=== PATIENT | male | born 1955 | race Caucasian/White ===

== ENCOUNTER 2016-10-22 15:42 | Inpatient (IN) | payer OTHER ==
[~2016-10-22] VITALS: Ht 188 cm; Wt 102.1 kg
--- NOTE | 2016-10-22 15:47 | NUR ---
PT SENT IN BY DR. LEIVA FOR EXTENSIVE DVT TO RIGHT LOWER EXT. THAT GOES FROM GROIN ALL THE WAY DOWN. PT HAD US AT [facility].
--- NOTE | 2016-10-22 15:52 | ED GENERAL ADULT ---
See Addendum History of Present Illness General Chief Complaint: General Adult Stated Complaint: PT NEEDS A RX FILL SAY MIKO CALL AHEAD Source: patient Exam Limitations: no limitations Vital Signs & Intake/Output Vital Signs & Intake/Output Vital Signs Date Time Temp Pulse Resp B/P B/P Pulse O2 O2 Flow FiO2 Mean Ox Delivery Rate 10/23 2131 97.3 75 18 186/78 95 Room Air 10/22 2012 97.3 76 18 176/88 97 Room Air 10/22 1803 72 18 189/88 96 Room Air 10/22 1626 98 Room Air 10/22 1548 96.8 94 16 195/95 98 Room Air Allergies Coded Allergies: No Known Allergies (10/22/16) Reconcile Medications Allopurinol 300 MG TABLET 1 TAB PO DAILY GOUT (Reported) Metoprolol Succinate 25 MG TAB 1 TAB PO DAILY HTN (Reported) Triage Note: PT SENT IN BY DR. MCWILLIAMS FOR EXTENSIVE DVT TO RIGHT LOWER EXT. THAT GOES FROM GROIN ALL THE WAY DOWN. PT HAD US AT [facility]. Triage Nurses Notes Reviewed? yes HPI: 61 yo M PMH HTN, Gout presenting with RLE swelling. Patient has had right calf swelling for the past 1-2 months, initially treated to a pulled muscle, but persistent, received right lower extremity DVT ultrasound today, "showed extensive thrombus in the right lower extremity extending from the popliteal vein through the right external iliac vein". Endorses RLE swelling, minimal pain. Denies fevers, chills, chest pain, SOB, palpitaitons, N/V, dizziness, NEGRON, or focal neurologic Sx. (MAICO FINE,SANTIAGO) Past History Travel History Traveled to [place] past 21 day No Medical History Any Pertinent Medical History? none Cardiovascular: hypertension Endocrine: GOUT Surgical History Surgical History: none Psychosocial History Tobacco Use: Never used ETOH Use: denies use Illicit Drug Use: denies illicit drug use Family History Hx Contributory? Yes (MAICO FINE,SANTIAGO) Review of Systems Review of Systems Constitutional: Reports: no symptoms. EENTM: Reports: no symptoms. Respiratory: Reports: no symptoms. Cardiovascular: Reports: edema. GI: Reports: no symptoms. Genitourinary: Reports: no symptoms. Musculoskeletal: Reports: muscle pain. Skin: Reports: no symptoms. Neurological/Psychological: Reports: no symptoms. Hematologic/Endocrine: Reports: no symptoms. Immunologic/Allergic: Reports: no symptoms. All Other Systems: Reviewed and Negative (MAICO FINE,SANTIAGO) Physical Exam Physical Exam General Appearance: well developed/nourished, no apparent distress, alert, awake Head: atraumatic Eyes: Bilateral: PERRL, EOMI. Neck: normal inspection, full range of motion Respiratory: normal breath sounds, lungs clear, respiratory distress Cardiovascular: regular rate/rhythm, normal peripheral pulses Peripheral Pulses: 2+ tibialis posterior (R), 2+ tibialis posterior (L), 2+ dorsalis pedis (R), 2+ dorsalis pedis (L) Gastrointestinal: normal bowel sounds, soft, non-tender Comments: Extremities: Right calf swelling, non-erythematous, non-TTP, LLE without swelling or TTP, 2+ DP/PT pulses bilaterall, no distal neurovascular deficits Core Measures ACS in differential dx? No CVA/TIA Diagnosis: No Severe Sepsis Present: No Septic Shock Present: No (MAICO FINE,SANTIAGO) Progress Differential Diagnoses I considered the following diagnoses in my evaluation of the patient: [ Cellulitis, DVT, low concern for PE, vascular compromise of RLE] Plan of Care: Orders Procedure Date/time Status Nothing by Mouth 10/23 B Active ECHOCARDIOGRAM 10/23 2214 Active CBC WITHOUT DIFFERENTIAL 10/23 0600 Active BASIC ELECTROLYTES PLUS BUN&CR 10/23 0600 Active EKG 10/23 0600 Active PARTIAL THROMBOPLASTIN TIME 10/23 0045 Active Regular Diet 10/22 D Complete Pathway - chart 10/222 Active Code Status 10/22 2132 Active Admit to inpatient 10/225 Active Patient Data 10/22 2014 Active ED Holding Orders 10/22 1930 Active Vital Signs 10/22 1930 Active Code Status 10/22 1930 Complete Patient Data 10/22 1848 Active Weight 10/22 1812 Active Intake & Output 10/22 1614 Active PARTIAL THROMBOPLASTIN TIME 10/22 1553 Complete PROTHROMBIN TIME 10/22 1553 Complete CBC WITHOUT DIFFERENTIAL 10/22 1553 Complete BASIC METABOLIC PANEL 10/22 1553 Complete EKG 10/22 1553 Active TRC EVALUATION (GEN) 10/22 UNK Active House Staff 10/22 UNK Active Vital Signs 10/22 UNK Active Current Medications Sig/Froilan Start time Last Medication Dose Stop Time Status Admin Acetaminophen 650 MG Q6P PRN 10/220 AC (Tylenol) Acetaminophen/ 1 TAB Q6P PRN 10/22 2130 AC Hydrocodone Bitart (Vicodin) Oxycodone/ 1 TAB Q6P PRN 10/22 2130 AC Acetaminophen (Percocet) Heparin Sodium 25,000 UNIT Q24H 10/22 1730 AC 10/22 (Porcine) 1845 (Heparin) Sodium Chloride 500 ML Heparin Sodium 5,000 UNIT .Q1M 10/22 173 AC 10/22 (Porcine) 1845 N/A 1 UNIT (No Carrier) Laboratory Tests 10/22/16 1626: Anion Gap 13, Estimated GFR > 60, BUN/Creatinine Ratio 18.9, Glucose 99, Calcium 9.6, PT 14.2 H, INR 1.36 H, APTT 34, CBC w Diff NO MAN DIFF REQ, RBC 5.41, MCV 85.5, MCH 28.3, RDW 16.4 H, MPV 7.6, Gran % 59.6, Lymphocytes % 27.2, Monocytes % 8.1, Eosinophils % 4.6, Basophils % 0.5, Absolute Granulocytes 5.0, Absolute Lymphocytes 2.3, Absolute Monocytes 0.7 H, Absolute Eosinophils 0.4, Absolute Basophils 0, PUBS MCHC 33.1 Physician MDM: 61 yo M PMH HTN presenting with known RLE DVT. Hypertensive, HR 90, otherwise VSS, remainder of exam as above. DDx: DVT, cellulitis, low concern for PE. ECG sinus rhythm, non-ischemic. CBC, BMP unermarkable. Called to discuss care with patient's PMD Dr. Mcwilliams, given patient well-appearing with normal vital signs and no symptoms concerning for PE willing to consider outpatient management on NOAC, requested vascular surgery consult to discuss if the patient would best be managed in the inpatient or outpatient setting. Vascular surgery (Dr. Parsons) consulted, reccomended inpatient admission with heparin gtt, surgery PA evaluation, will evaluate tonight or tomorrow for possible endovascular intervention/lysis. Heparin gtt ordered. Admit to hospitalist. The plan of care was discussed with the patient who expressed agreement and understanding (MAICO FINE,SANTIAGO) Initial ED EKG: normal sinus rhythm (MAICO FINE,SANTIAGO) Departure Departure Disposition: STILL A PATIENT Condition: Stable Clinical Impression Primary Impression: DVT (deep venous thrombosis) Referrals: ABDIRAHMAN MCWILLIAMS DO (PCP/Family) Departure Forms: Customer Survey General Discharge Information (MAICO FINE,SANTIAGO) Admission Note Spoke With: MAIK VAZ MD Documentation of Exam: Documentation of any treatments & extenuating circumstances including Concerns Regarding Discharge (functional status, medication knowledge or non-compliance, living conditions, etc.) that warrant an admission rather than observation: [ Patient has sensitive TVT. Vascular is going to attempt TPA at this site. Patient will most likely be in the hospital for greater than 24-48 hours.] Resident Co-Sign Statement Statement: ED Attending supervision documentation- [X] I saw and evaluated the patient. I have also reviewed all the pertinent lab results and diagnostic results. I agree with the findings and the plan of care as documented in the Resident's documentation. [X] I have reviewed the ED Record and agree with the Resident's documentation. [] Additions or exceptions (if any) to the Resident's note and plan are summarized below: [] (EVENS FINE,ROLANDO Whatley) Resident Co-Sign Statement Statement: ED Attending supervision documentation- [] I saw and evaluated the patient. I have also reviewed all the pertinent lab results and diagnostic results. I agree with the findings and the plan of care as documented in the Resident's documentation. [X] I have reviewed the ED Record and agree with the Resident's documentation. [] Additions or exceptions (if any) to the Resident's note and plan are summarized below: [] (ARGENTINA FINE,ALICIA) Critical Care Note Critical Care Note Critical Care Time: non-applicable (SANTIAGO NINA MD)
--- NOTE | 2016-10-22 16:11 | NUR ---
PT CHANGING INTO GOWN. EKG IN PROGRESS
--- NOTE | 2016-10-22 16:31 | NUR ---
PT REPORTS THAT PAIN AND SWELLING TO RLE OCCURRED APPROX 2 MONTHS AGO AFTER EXERCISE AND THE SWELLING AND SORENESS IN R CALF AND ANKLE NEVER GOT BETTER. STATES ONLY SLIGHT DISCOMFORT TO UPPER LEG. ALSO REPORTS MED NON-COMPLIANCE WITH ALLOPURINOL
[2016-10-22 16:36] LABS: ABSOLUTE BASOPHIL COUNT 0 /CUMM (0.0-0.2); ABSOLUTE EOSINOPHIL COUNT 0.4 /CUMM (0.0-0.7); ABSOLUTE LYMPH COUNT 2.3 /CUMM (1.2-3.4); ABSOLUTE MONOCYTE COUNT 0.7 /CUMM (0.10-0.60); BASOPHIL % 0.5 % (0.0-2.0); EOSINOPHIL % 4.6 % (0-5); GRANULOCYTE % 59.6 % (42.2-75.2); HEMATOCRIT 46.2 % (42-52); MEAN CORPUSCULAR HGB 28.3 PG (27.0-31.0); MEAN CORPUSCULAR HGB CONC 33.1 G/DL (33.0-37.0); MEAN CORPUSCULAR VOLUME 85.5 FL (80.0-94.0); MEAN PLATELET VOLUME 7.6 FL (7.4-10.4); PLATELET COUNT 228 /CUMM (130-400); RBC DISTRIBUTION WIDTH 16.4 % (11.5-14.5); RED BLOOD CELL CT 5.41 /CUMM (4.70-6.10); WHITE BLOOD CELL COUNT 8.4 /CUMM (4.8-10.8)
[2016-10-22] MEDS ORDERED: METOPROLOL SUCC25 M1 PO (16:36)
[2016-10-22] MEDS ORDERED: ALLOPURINOL300 M1 PO (16:36)
[2016-10-22 16:52] LABS: PT 14.2 SEC (9.4-12.5); PTT 34 SEC (25-37)
--- NOTE | 2016-10-22 18:11 | NUR ---
IV ESTABLISHED AND PT EXPLAINED PLAN FOR ADMISSION WITH HEPARIN THERAPY
--- NOTE | 2016-10-22 18:52 | NUR ---
PT MEDICATED WITH HEPARIN BOLUS AND GTT INITIATED AT 26ML/HR PER VTE PROTOCOL AND MAX OUT DOSE OF 1300UNITS BASED ON PATIENT'S CONFIRMED WEIGHT. REPEAT PTT ORDERED FOR 1245AM. CALL HEARN IN REACH, LIGHTS DIMMED FOR COMFORT
--- NOTE | 2016-10-22 19:27 | NUR ---
ASSUMED CARE OF PT FROM BOOKER HASTINGS. PT RESTING COMFORTABLY ON STRETCHER, AWARE OF BEDREST STATUS WITH HEPARIN GTT INFUSING. PT TOLERATING WELL. DENIES ANY SOB. WILL CTM.
--- NOTE | 2016-10-22 20:13 | NUR ---
PT RESTING COMFORTABLY, DENIES ANY COMPLAINTS AT THIS TIME. AWAITING ADMISSION
--- NOTE | 2016-10-22 20:18 | NUR ---
PT'S RM ASSIGNMENT 220 BED 1
--- NOTE | 2016-10-22 20:20 | NUR ---
AT BEDSIDE TO EVAL PT
--- NOTE | 2016-10-22 20:50 | NUR ---
HOUSE STAFF AT BEDSIDE
--- NOTE | 2016-10-22 21:14 | NUR ---
PER HOUSE STAFF AND MOD PT WILL NOW BE FULL TELE ADMIT. AWAITING NEW BED ASSIGNMENT. NSR (75) ON MONITOR. DENIES SOB. DENIES CP.
--- NOTE | 2016-10-22 21:23 | NUR ---
PT TO TELE RM ASSIGNMENT 189 BED 2
--- NOTE | 2016-10-22 22:06 | NUR ---
REPORT GIVEN TO BOOKER DUBON
[2016-10-22 22:40] VITALS: BP 178/100
--- NOTE | 2016-10-22 23:20 | History & Physical ---
MICHEAL PASCUAL 10/22/16 2320: General Information and HPI MD Statement: I have seen and personally examined TAWANA KEE and documented this H&P. The patient is a 61 year old M who presented with a patient stated chief complaint of left leg swelling Source of Information: patient Exam Limitations: no limitations History of Present Illness: 61 year old gentleman nonsmoker, with past medical history significant for hyperlipidemia, gout, white coat hypertension recently started on antihypertensive, comes in with 3 day history of left lower extremity swelling. Since the past 2-3 days he's been experiencing some weakness and achiness and swelling of his left lower extremity. Denies pain, shortness of breath, chest pain, palpitations, cough, fever, loss of weight, night sweats, headaches, vision changes, recent travel, family history of blood disorders, bowel or bladder symptoms. Since the past few years he has been noticing intermittent swelling of his left leg however he did not choose to follow-up on it as it usually goes away on its own. He has also not had a colonoscopy. Allergies/Medications Allergies: Coded Allergies: No Known Allergies (10/22/16) Home Med list Allopurinol 300 MG TABLET 1 TAB PO DAILY GOUT (Reported) Metoprolol Succinate 25 MG TAB 1 TAB PO DAILY HTN (Reported) Compliance With Home Meds: GOOD Past History Travel History Traveled to [place] past 21 day No Medical History Cardiovascular: hypertension Endocrine: GOUT Isolation History: Standard Surgical History Surgical History: none Past Family/Social History Family History Relations & Conditions if any FATHER Stroke MOTHER Stroke Relation not specified for: Congestive heart failure Psychosocial History Where do you live? Home Who Do You Live With? self Smoking Status: Never Smoked ETOH Use: denies use Illicit Drug Use: denies illicit drug use Functional Ability ADLs Independent: dressing, eating, toileting, bathing. Ambulation: independent IADLs Independent: shopping, housework, finances, food prep, telephone, transportation , medication admin. Review of Systems Review of Systems Constitutional: Denies: chills, diaphoresis, fever, malaise, weakness, unexplained weight loss. Cardiovascular: Denies: chest pain, edema, orthopena, palpitations, peripheral edema, syncope. Respiratory: Denies: cough, hemoptysis, orthopnea, short of breath, sputum production, stridor, wheezing. GI: Denies: abdominal pain, bloating, constipation, diarrhea, distention, bowel incontinence, melena, nausea, bloody stool, changes in stool, vomiting, steatorrhea. Genitourinary: Denies: discharge, dysuria, frequency, hematuria, hesitation, nocturia, pain, urgency. Exam & Diagnostic Data Last 24 Hrs of Vital Signs/I&O Vital Signs Date Time Temp Pulse Resp B/P B/P Pulse O2 O2 Flow FiO2 Mean Ox Delivery Rate 10/22 2240 98.7 72 16 178/100 96 Room Air 10/22 2132 97.3 75 18 186/78 95 Room Air 10/22 2012 97.3 76 18 176/88 97 Room Air 10/22 1803 72 18 189/88 96 Room Air 10/22 1626 98 Room Air 10/22 1548 96.8 94 16 195/95 98 Room Air Intake & Output 10/23 0800 10/23 0000 10/22 1600 Intake Total Output Total Balance Patient 230 lb 230 lb Weight Weight Reported by Patient Reported by Patient Measurement Method Physical Exam General Appearance Alert, Oriented X3, Cooperative, No Acute Distress HEENT Atraumatic, PERRLA, EOMI, Mucous Membr. moist/pink Neck Supple, No JVD Lymphatic Cervical nl Cardiovascular Regular Rate, Normal S1, Normal S2 Lungs Clear to Auscultation, Normal Air Movement Abdomen Normal Bowel Sounds, Soft, No Tenderness Extremities left lower leg swelling and mild erthyema Vascular Pulses Symmetrical Diagnostic Data EKG Results NSR, HR 79, QTC 450, PVC, Other Results US-UNILATERAL VENOUS DOPPLER FINDINGS: There is extensive thrombus extending from the popliteal vein through the common femoral vein of the right lower extremity. Superiorly, the thrombus extends into the right external iliac vein extending cephalad. These vessels are not compressible, but some flow is demonstrated in the external iliac vein. Flow is demonstrated in the greater saphenous vein. Distally, some flow is demonstrated in the calf veins, but the peroneal veins are not well visualized. There are no focal fluid collections. IMPRESSION: 1. Triplex study demonstrates extensive thrombus in the right lower extremity extending from the popliteal vein through the right external iliac vein. Some flow is demonstrated in the right external iliac vein. There is flow in the greater saphenous vein. 2. There are no focal fluid collections. Assessment/Plan Assessment: 61 year old gentleman nonsmoker, with past medical history significant for hyperlipidemia, gout, white coat hypertension recently started on antihypertensive, comes in with 3 day history of left lower extremity swelling. As Ranked By This Provider Problem List: 1. DVT (deep venous thrombosis) Assessment/Plan unprovoked vascular surgery aware will see pt in am f/up echo 2. Gout Assessment/Plan continue allopurinol 3. Hypertension Assessment/Plan recently started on metoprolol norvasc added (hold for hypotension) 4. DVT prophylaxis Assessment/Plan IV heparin 5. DNI (do not intubate) 6. DNR (do not resuscitate) Core Measures/Miscellaneous Acute Coronary Syndrome ACS Diagnosis: No Cerebrovascular Accident CVA/TIA Diagnosis: No Congestive Heart Failure CHF Diagnosis: No VTE (View Protocol) VTE Risk Factors: Age > 40 No [facility] VTE prophylaxis d/t: VTE low risk No VTE Pharm Prophylaxis d/t: No contraindications VTE Diagnosis: Yes VTE Type: Deep Venous Thrombosis VTE Confirmed by (Test): EXT BILATERAL VENOUS DOPP Sepsis (View Protocol) Severe Sepsis Present: No Septic Shock Septic Shock Present: No Miscellaneous Documentation Attending Case Discussed With: JOHNSON LEPE MD Primary Care Physician: ABDIRAHMAN LEIVA DO Patient sees these Specialists none Level of Patient Care: Telemetry MAIK VAZ 10/23/16 0033: Attending MD Review Statement Attending Statement Attending MD Statement: examined this patient, discuss w/resident/PA/SIZING END BANDER, agreed w/resident/PA/SIZING END BANDER, reviewed EMR data (avail), reviewed images, amended to note Attending Assessment/Plan: CC: Sent by PCP right lower extremity DVT PMH: Whitecoat hypertension, gout, dyslipidemia Patient states that he has been getting cramping like pain in right lower extremity since 3 months. Patient thought that he was getting unaccustomed exercise after winter so he ignored it. Then he started to notice swelling in that leg. He had a scheduled follow-up appointment with PCP for whitecoat hypertension, where he mentioned about the swelling so DVT Doppler was obtained which showed extensive right lower extremity DVT. Patient denies any chest pain, shortness of breath, dyspnea on exertion, palpitations, presyncope or syncope. His activity level has been decreased since winter. But he denies any long sitting to 3 hours, long hours, air travel, weight loss, weight gain, loss of appetite, abnormal lumps, night sweats, fever or chills. No family history significant for cancer or DVT/ PE. Vitals: MAXIMUM TEMPERATURE 96.8, pulse 94, RR 16, blood pressure 195/95, saturating well on room air. On exam: A O 3, cooperative, no acute distress, neck supple, JVD normal, no lymphadenopathy, mucosa moist, no focal neurological deficit, the right lower extremity is swollen, red, warm. CVS: S1-S2, RRR. RS: Clear to auscultate bilaterally. Abdomen: Soft, NT, ND, bowel sounds present. Peripheral pulses intact Labs: CBC, BMP, unremarkable. INR 1.36 Right lower extremity Doppler: 1. Triplex study demonstrates extensive thrombus in the right lower extremity extending from the popliteal vein through the right external iliac vein. Some flow is demonstrated in the right external iliac vein. There is flow in the greater saphenous vein. 2. There are no focal fluid collections. A and P 61-year-old male with unremarkable past medical history presented after finding the right lower extremity extensive DVT. Symptoms are since last 2 to 3 months, no chest pain, palpitations. Examination unremarkable, no EKG changes. Patient had been started on heparin drip in ER. Vascular surgery was consulted for probable thrombolysis who suggested to continue heparin drip, nothing by mouth after midnight and probable plan of thrombolysis tomorrow. Patient may receive contrast tomorrow so CTA was held for now. Patient would benefit from telemetry monitoring given his extensive DVT and unsure status of pulmonary embolism. Patient also noted to have high blood pressure, he attributes that to whitecoat hypertension. He states that his blood pressure is 130/70 at home and always higher in doctor's office. EKG suspected for LVH, we'll resume low-dose amlodipine. + Right lower extremity extensive DVT, unprovoked + Hypertension - Admit to telemetry - Continuous telemetry monitoring - Appreciate vascular surgery consult - Check troponin, proBNP - 2-D echo in a.m. to rule out right heart strain and left ventricular hypertrophy - Continue heparin drip - We need to change/bridge to by mouth anticoagulation after thrombolysis - Nothing by mouth after midnight - CBC BMP in a.m. - Continue amlodipine 5 mg daily starting today - Add liver function to sample to lab - Age-appropriate screening for cancer outpatient, patient never had colonoscopy - Adequate pain control CHARMAINE REIS 10/23/16 0100: Resident Review Statement Resident Statement: examined this patient, discussed with international marketing executive, agreed with international marketing executive, reviewed images, amended to note Other Findings: 61-year-old very pleasant gentleman presented to the [facility] ED for right lower extremity swelling, achiness and discomfort with exertion of several months duration, found to have extensive thrombus in the right lower extremity extending from popliteal to right iliac vein, in the setting of no recent travel , long flights, b-symptoms, nonsmoker, no trauma to the leg, no blood in stools or urine, but not up to date with age appropriate cancer screening; passed to for colonoscopy. No family history of DVT, PE or cancers. Unprovoked DVT, on IV heparin, vascular surgery consulted and will be performing sheath thrombolysis. Nothing by mouth after midnight. Decision on duration and choice of anticoagulant post thrombolysis. Blood pressure control. DNR/DNI. Nothing by mouth. IV heparin - DVT prophylaxis
--- NOTE | 2016-10-22 23:20 | NUR ---
PT ADMITTED TO ROOM 189-2 AT ABOUT 2240. PT IS A/O X3. SPEECH CLEAR. NO C/O CP. NSR ON HEART MONITOR. SWELLING TO R LEG FROM KNEE TO FOOT. NO C/O PAIN ANYWHERE. POSITIVE PERIPHERAL PULSES. HEPARIN GTT RUNNING AT 26 ML/HR THROUGH #18 RH. PT ORRIENTED TO ROOM. SAFETY MAINTAINED. CALL HEARN WITHIN REACH.
[2016-10-23 01:40] LABS: PTT > 120 SEC (25-37)
[2016-10-23 02:47] VITALS: BP 160/88
--- NOTE | 2016-10-23 07:22 | PN- Housestaff ---
TIMO FINE,DARIUS 10/23/16 0721: Subjective Follow-up For: Right lower extremity DVT Tele-Events Since Last Visit: NSR/SB HR 59-72 0400 HR 46 0630 HR 43 Subjective: Patient seen and examined. He is seen sitting upright in bed resting comfortably. He appears to be in no acute distress. He reports feeling well and denies any new subjective complaints. He does however admit to some mild right lower extremity swelling/discomfort. He otherwise denies any blurred/double vision, lightheadedness/dizziness, headache, fever, chills, chest pain/discomfort, palpitations, heart burn, shorntess of breath, cough, nausea, vomiting, diarrhea, new bleeding. Review of Systems Constitutional: Reports: see HPI. Objective Last 24 Hrs of Vital Signs/I&O Vital Signs Date Time Temp Pulse Resp B/P B/P Pulse O2 O2 Flow FiO2 Mean Ox Delivery Rate 10/23 1044 Room Air 10/23 0948 68 160/92 10/23 0948 68 160/92 10/23 0825 98.9 63 18 162/90 95 Room Air 10/23 0247 74 160/88 10/22 2240 98.7 72 16 178/100 96 Room Air 10/22 2132 97.3 75 18 186/78 95 Room Air 10/22 2013 97.3 76 18 176/88 97 Room Air 10/22 1803 72 18 189/88 96 Room Air 10/22 1626 98 Room Air 10/22 1548 96.8 94 16 195/95 98 Room Air Intake & Output 10/23 1600 10/23 0800 10/23 0000 Intake Total 181 Output Total Balance 181 Intake, IV 181 Patient 104.326 kg 104.326 kg Weight Weight Reported by Patient Measurement Method Physical Exam General Appearance: Alert, Oriented X3, Cooperative, No Acute Distress Other Physical Findings: General- well developed, pleasant middle aged man in no acute distress HEENT- NCAT, PERRL, EOMI, anicteric sclera Chest- S1, S2 w/o m/g/r Lung- CTA bilaterally Abdomen- Soft, nontender, nondistended, bowel sounds intact Neuro- Awake and alert, CN II - XII grossly intact Ext-normal pulses except as below, no cyanosis/clubbing -RLE: mild swelling, mild tenderness, decreased but palpable pulses, no deformity or rash Current Medications: Current Medications Sig/Froilan Start time Last Medication Dose Route Stop Time Status Admin Acetaminophen 650 MG Q6P PRN 10/22 2130 AC PO Acetaminophen/ 1 TAB Q6P PRN 10/22 2130 AC Hydrocodone Bitart PO Allopurinol 300 MG DAILY 10/23 1000 AC 10/23 PO 0948 Amlodipine Besylate 5 MG DAILY 10/23 1000 AC 10/23 PO 0948 Dextrose/Sodium 1,000 ML Q20H 10/23 1045 AC 10/23 Chloride IV 10/24 0644 1135 Heparin Sodium 0 .STK-MED ONE 10/22 1845 DC (Porcine) .ROUTE Heparin Sodium 25,000 UNIT Q24H 10/22 1730 AC 10/22 (Porcine) IV 1845 Sodium Chloride 500 ML Heparin Sodium 5,000 UNIT .Q1M 10/22 1730 AC 10/22 (Porcine) IV PUSH 1845 N/A 1 UNIT Metoprolol Tartrate 25 MG DAILY 10/23 1000 AC 10/23 PO 0948 Oxycodone/ 1 TAB Q6P PRN 10/220 AC Acetaminophen PO Last 24 Hrs of Lab/Steffen Results Last 24 Hrs of Labs/Mics: Laboratory Tests 10/23/16 0910: APTT 88 H 10/23/16 0622: Anion Gap 10, Estimated GFR > 60, BUN/Creatinine Ratio 16.7, Total Bilirubin 0.9 , Direct Bilirubin 0.3, AST 24, ALT 46, Alkaline Phosphatase 104, Total Protein 6.4, Albumin 3.7, CBC w Diff NO MAN DIFF REQ, RBC 5.26, MCV 85.9, MCH 28.0, RDW 16.3 H, MPV 8.5, Gran % 55.1, Lymphocytes % 32.5, Monocytes % 7.4, Eosinophils % 4.3, Basophils % 0.7, Absolute Granulocytes 4.2, Absolute Lymphocytes 2.5, Absolute Monocytes 0.6, Absolute Eosinophils 0.3, Absolute Basophils 0.1, PUBS MCHC 32.7 L 10/23/16 0100: APTT > 120 *H 10/22/16 1626: Anion Gap 13, Estimated GFR > 60, BUN/Creatinine Ratio 18.9, Glucose 99, Calcium 9.6, Total Bilirubin 0.5, AST 27, ALT 42, Alkaline Phosphatase 110, PT 14.2 H, INR 1.36 H, APTT 34, CBC w Diff NO MAN DIFF REQ, RBC 5.41, MCV 85.5, MCH 28.3, RDW 16.4 H, MPV 7.6, Gran % 59.6, Lymphocytes % 27.2, Monocytes % 8.1, Eosinophils % 4.6, Basophils % 0.5, Absolute Granulocytes 5.0, Absolute Lymphocytes 2.3, Absolute Monocytes 0.7 H, Absolute Eosinophils 0.4, Absolute Basophils 0, PUBS MCHC 33.1 Assessment/Plan Assessment: 61 year old man with relatively limited past medical history sent in for evaluation by his PCP after discovering a right lower extremity DVT on unilateral ultrasound. #Right Lower Extremity Deep Venous Thrombosis Patient reports history of mild/moderate lower extremity discomfort for the past several months. Denies smoking history, recent immobility, previous blood clots, or hormone replacement therapy, or personal history of cancer. Patient informed his PCP Dr. Mcwilliams of this considering it was persistent/worsening for which he was sent for an outpatiennt Ultrasound of the extremity. The study identified an extensive thrombus from the popliteal vein extending past the external iliac artery for which he was sent in to the ED for evalution. Patient was placed on a Heparin Drip and vascular surgery consult was placed. Patient was kept NPO in anticipation of this. CT Abdomen/Pelvis without contrast did not identify any obvious mass lesion that may obstruct any venous outflow. Thrombolysis was performed and patient was transferred to the ICU for closer observation. -Telemetry -Heparin Drip -D5 1/2 NS @ 50mL/hr -NPO for thrombolysis -Vascular Surgery consult -Outpatient evaluation of possible occult malignancy and colonoscopy Hypertension -Metoprolol 25mg PO Daily -Amlodipine 5mg PO Daily Hyperlipidemia-Not currently on medication. Gout-Allopurinol 300mg PO Daily Pain Plan- Percocet Diet- NPO for procedure, Regular Diet afterwards DVT PPx- on heparin drip Code Status- DNR/DNI Problem List: 1. Deep venous thrombosis of right popliteal vein Pain Ratin Pain Location: None Pain Goal: Remain pain free Pain Plan: See assessment Tomorrow's Labs & Rationales: CBC/BEP- vascular post op procedure RAMONA KERN MD 10/23/16 1502: Attending MD Review Statement Attending Statement Attending MD Statement: examined this patient, discuss w/resident/PA/FLATTENING PRESS OPERATOR, agreed w/resident/PA/FLATTENING PRESS OPERATOR, reviewed EMR data (avail), discussed with nursing, discussed with case mgmt, amended to note Attending Assessment/Plan: Patient is an extremely pleasant 61-year-old male was admitted with an unprovoked extensive right lower extremity vein thrombosis. Due to the extent of the disease and high risk for post-thrombotic syndrome the vascular surgery service is recommending that directed thrombolysis and mechanical thrombectomy procedure will be done later on today. On examination he is in no acute distress. He does no have any pulmonary symptoms. He is not requiring oxygen supplementation. Lungs are clear bilaterally. He has right lower extremity swelling with no erythema open areas. Distal pulses are strongly palpable. Blood pressure was elevated on admission but is appropriate on his home regimen. Recommendations: -Continue anticoagulation with IV heparin. Postlumpectomy he should be completed to oral anticoagulants once cleared by the vascular surgery service. -He'll be undergoing cath that directed thrombolyzes later on today. - Continue his home regimen of amlodipine and metoprolol. -Patient should have age-appropriate cancer screening as an outpatient. He reports having a stool enzymes study done as an outpatient. Stool has and this was negative. He has been advised to follow-up with his primary care provider for referral for colonoscopy and other age-appropriate colon cancer screening. CT abdomen done to rule out mechanical obstruction shows no overt intra- abdominal pathology other than incidental findings of nonobstructing nephrolithiasis and nonobstructing cholelithiasis as well as diverticulosis.
[2016-10-23 08:25] VITALS: BP 162/90
[2016-10-23 08:26] LABS: ABSOLUTE BASOPHIL COUNT 0.1 /CUMM (0.0-0.2); ABSOLUTE EOSINOPHIL COUNT 0.3 /CUMM (0.0-0.7); ABSOLUTE GRANULOCYTE CT 4.2 /CUMM (1.4-6.5); ABSOLUTE LYMPH COUNT 2.5 /CUMM (1.2-3.4); ABSOLUTE MONOCYTE COUNT 0.6 /CUMM (0.10-0.60); BASOPHIL % 0.7 % (0.0-2.0); EOSINOPHIL % 4.3 % (0-5); GRANULOCYTE % 55.1 % (42.2-75.2); HEMATOCRIT 45.1 % (42-52); MEAN CORPUSCULAR HGB CONC 32.7 G/DL (33.0-37.0); MEAN CORPUSCULAR VOLUME 85.9 FL (80.0-94.0); MEAN PLATELET VOLUME 8.5 FL (7.4-10.4); PLATELET COUNT 211 /CUMM (130-400); RBC DISTRIBUTION WIDTH 16.3 % (11.5-14.5); RED BLOOD CELL CT 5.26 /CUMM (4.70-6.10); WHITE BLOOD CELL COUNT 7.5 /CUMM (4.8-10.8)
[2016-10-23 09:53] LABS: PTT 88 SEC (25-37)
--- NOTE | 2016-10-23 10:20 | Cons- Vascular Surgery ---
General Information and HPI Consulting Request Date of Consult: 10/23/16 Requested By: RAMONA KERN M.D Reason for Consult: DVT History of Present Illness: 61-year-old male with right leg DVT. Patient has had progressive edema of the right leg for the past few months. He is noted right calf swelling, tightness when ambulating, and being active. This had been progressing over time and he went to see his primary care physician. A right leg venous ultrasound done showing DVT in the right iliofemoral area, extending into the distal external iliac vein. Patient denies any history of DVT. No problems with weight gain or weight loss. Otherwise healthy and active. Allergies/Medications Allergies: Coded Allergies: No Known Allergies (10/22/16) Home Med List: Allopurinol 300 MG TABLET 1 TAB PO DAILY GOUT (Reported) Metoprolol Succinate 25 MG TAB 1 TAB PO DAILY HTN (Reported) Current Medications: Current Medications Sig/Froilan Start time Last Medication Dose Route Stop Time Status Admin Acetaminophen 650 MG Q6P PRN 10/22 2130 AC PO Acetaminophen/ 1 TAB Q6P PRN 10/22 2130 AC Hydrocodone Bitart PO Allopurinol 300 MG DAILY 10/23 1000 AC 10/23 PO 0948 Amlodipine Besylate 5 MG DAILY 10/23 1000 AC 10/23 PO 0948 Heparin Sodium 0 .STK-MED ONE 10/22 1845 DC (Porcine) .ROUTE Heparin Sodium 25,000 UNIT Q24H 10/22 1730 AC 10/22 (Porcine) IV 1845 Sodium Chloride 500 ML Heparin Sodium 5,000 UNIT .Q1M 10/22 1730 AC 10/22 (Porcine) IV PUSH 1845 N/A 1 UNIT Metoprolol Tartrate 25 MG DAILY 10/23 1000 AC 10/23 PO 0948 Oxycodone/ 1 TAB Q6P PRN 10/22 2130 AC Acetaminophen PO Past History Medical History Cardiovascular: hypertension Endocrine: GOUT Surgical History Pertinent Surgical History: 1 Family History Relations & Conditions If Any: FATHER Stroke MOTHER Stroke Relation not specified for: Congestive heart failure Psychosocial History Where Do You Live? Home Who Do You Live With? self Smoking Status: Never Smoked ETOH Use: denies use Illicit Drug Use: denies illicit drug use Functional Ability ADLs Independent: dressing, eating, toileting, bathing. Ambulation: independent IADLs Independent: shopping, housework, finances, food prep, telephone, transportation , medication admin. Review of Systems Review of Systems Constitutional: Denies: chills, fever, unexplained weight loss. EENTM: Denies: no symptoms. Cardiovascular: Reports: edema. Denies: chest pain. Respiratory: Denies: short of breath. GI: Denies: no symptoms. Skin: Reports: change in skin color (mild lopez pigmentation b/l). Neurological/Psychological: Denies: no symptoms. Hematologic/Endocrine: Denies: bleeding. Exam & Diagnostic Data Vital Signs and I&O Vital Signs Date Time Temp Pulse Resp B/P B/P Pulse O2 O2 Flow FiO2 Mean Ox Delivery Rate 10/23 0948 68 160/92 10/23 0948 68 160/92 10/23 0825 98.9 63 18 162/90 95 Room Air 10/23 0247 74 160/88 10/22 2240 98.7 72 16 178/100 96 Room Air 10/22 2132 97.3 75 18 186/78 95 Room Air 10/22 2013 97.3 76 18 176/88 97 Room Air 10/22 1803 72 18 189/88 96 Room Air 10/22 1626 98 Room Air 10/22 1548 96.8 94 16 195/95 98 Room Air Intake & Output 10/23 1600 10/23 0800 10/23 0000 10/22 1600 10/22 0800 10/22 0000 Intake Total 181 Output Total Balance 181 Intake, IV 181 Patient 104.326 kg 104.326 kg 104.326 kg Weight Weight Reported by Patient Reported by Patient Measurement Method Physical Exam General Appearance: well developed/nourished, no apparent distress, alert, awake , anxious Head: normal appearance Eyes: Bilateral: normal appearance. Ears, Nose, Throat: normal pharynx Neck: normal inspection Respiratory: normal breath sounds Cardiovascular: regular rate/rhythm Peripheral Pulses: 0 popliteal (R), 0 popliteal (L), 0 tibialis posterior (R), 0 tibialis posterior (L) Gastrointestinal: soft, non-tender Extremities: normal inspection, normal capillary refill, Right leg fullness, prominent veins Assessment/Plan Assessment/Plan Right iliofemoral DVT. DVT extension and external iliac vein to the popliteal vein. Thrombus may extend more proximally. Patient has had right leg edema for a few months. This may suggest proximal iliac vein stenosis that has been chronic, now leading to iliofemoral DVT. Currently on IV heparin. Recommend CT scan of abdomen and pelvis noncontrast, to rule out extrinsic compression, mass. If the CT scan is negative, would proceed with intervention. Recommend right iliofemoral venogram, catheter-directed thrombolysis, mechanical thrombectomy. May take 24-48 hours for thrombolysis. If underlying venous stenosis or occlusion is present, can consider stenting as well. Procedures for thrombolysis, and to prevent long-term postphlebitic syndrome of the right lower extremity in the presence of this iliac DVT. I discussed the patient procedure. We also discussed risks including bleeding, fatal bleeding, embolism. Patient verbalized understanding of plan, and agrees to proceed. Problem List: 1. DVT (deep venous thrombosis) Other Findings/Comments: PATIENT: TAWANA KEE PRESENT AGE: 61 PATIENT ACCOUNT NO: [id number] : 54 LOCATION: [facility] ORDERING PHYSICIAN: ABDIRAHMAN MCWILLIAMS DO SERVICE DATE: 10/22/16 EXAM TYPE: US - US-UNILATERAL VENOUS DOPPLER EXAMINATION: US TRIPLEX LOWER EXTREMITY, RIGHT CLINICAL INFORMATION: Swelling right leg. COMPARISON: None. TECHNIQUE: Color-flow triplex imaging with spectral analysis and compression Doppler were performed on the lower extremity. FINDINGS: There is extensive thrombus extending from the popliteal vein through the common femoral vein of the right lower extremity. Superiorly, the thrombus extends into the right external iliac vein extending cephalad. These vessels are not compressible, but some flow is demonstrated in the external iliac vein. Flow is demonstrated in the greater saphenous vein. Distally, some flow is demonstrated in the calf veins, but the peroneal veins are not well visualized. There are no focal fluid collections. IMPRESSION: 1. Triplex study demonstrates extensive thrombus in the right lower extremity extending from the popliteal vein through the right external iliac vein. Some flow is demonstrated in the right external iliac vein. There is flow in the greater saphenous vein. 2. There are no focal fluid collections. 3. This critical result was discussed with Abdirahman Mcwilliams by telephone on 10/22/2016 at 3:15 PM and it was ascertained that the content and urgency of the report was understood at the time of direct communication. DICTATED BY: PRITI HARPER MD DATE/TIME DICTATED:10/22/16 1509 BREAD SUPERVISOR:LETTY DATE/TIME TRANSCRIBED:10/22/16 / 1509 CONFIDENTIAL, DO NOT COPY WITHOUT APPROPRIATE AUTHORIZATION. <Electronically signed in Other Vendor System> SIGNED BY: PRITI HARPER MD 10/22/16 1524 Consult Acknowledgment - Thank you for your consult request.
--- NOTE | 2016-10-23 13:24 | CT SCAN REPORT ---
EXAMINATION: CT ABDOMEN AND PELVIS WITHOUT CONTRAST CLINICAL INFORMATION: 61-year-old male with right lower extremity swelling and have extensive venous thrombosis, including involvement of external iliac vein. Evaluate for mass. COMPARISON: Lower extremity venous ultrasound from 10/22/2016. TECHNIQUE: Multidetector volumetric imaging was performed from the superior aspect of the liver through the pubic symphysis. Sagittal and coronal reformatted images were obtained on the technologist's workstation. DLP: 849 mGy-cm FINDINGS: LUNG BASES: Linear opacities of subsegmental atelectasis within the inferior lingula, medial segment of the middle lobe and lower lobes. No pericardial or pleural effusion. LIVER, GALLBLADDER, AND BILIARY TREE: Liver has normal size and contour. There are no hepatic masses observed on these noncontrast images. Gallbladder contains multiple calcified stones. No gallbladder wall edema or pericholecystic inflammatory change. PANCREAS: Unremarkable. SPLEEN: Unremarkable. ADRENAL GLANDS: Unremarkable. KIDNEYS AND URETERS: There are two calyceal stones of the right kidney and at least five calyceal stones of the left kidney. The calculus at the right upper pole is 0.3 x 0.5 x 0.4 cm and has attenuation of approximately 900 HU. The calculus in the interpolar region of the right kidney is 0.3 x 0.5 x 0.2 cm. The largest calculus of the left kidney is in the interpolar region; it measures 0.6 x 0.6 x 0.4 cm and has attenuation of 1,300 HU. No evidence of ureterolithiasis or hydroureteronephrosis. BLADDER: Unremarkable. GASTROINTESTINAL TRACT: Stomach is unremarkable. Bowel loops are normal in caliber. Diverticulosis of the descending and sigmoid colon without diverticulitis. Appendix is normal. ABDOMINAL WALL: The fat-containing umbilical hernia sac measures 3 x 1.8 x 3.7 cm. Also, there are fat-containing inguinal hernias (left slightly larger than right). LYMPH NODES: No pathologic sized lymph nodes within the abdomen or pelvis. No inguinal lymphadenopathy. VASCULAR: Patient has known thrombus of the right popliteal, femoral and external iliac veins. The iliac and femoral veins are not well evaluated on this noncontrast exam. There are no retroperitoneal masses compressing the inferior vena cava. No evidence of retroperitoneal fibrosis. There is mild atherosclerotic calcification of the abdominal aorta and iliac arteries without aneurysm. PELVIC VISCERA: Prostate gland is normal in size. No pelvic soft tissue mass or free fluid. OSSEOUS STRUCTURES: No aggressive lesions within the degenerated spine. There is multilevel facet osteoarthritis of the lumbar spine. Osteoarthritis of the hips, moderate on the right and mild on the left. There are several scattered nonaggressive sclerotic foci within pelvic bones, compatible with bone islands. IMPRESSION: 1. No evidence of lymphadenopathy or tumor in the abdomen or pelvis. 2. Bilateral nephrolithiasis without hydroureteronephrosis. 3. Diverticulosis of the descending and sigmoid colon without diverticulitis. 4. Cholelithiasis without cholecystitis. 5. Fat-containing umbilical hernia and inguinal hernias.
[2016-10-23 15:34] VITALS: BP 152/84
--- NOTE | 2016-10-23 17:40 | NUR ---
NURSING NOTE; PT TAKEN TO THE OR AT 1720.
--- NOTE | 2016-10-23 19:18 | Operative Report ---
Operative/Inv Procedure Report Surgery Date: 10/23/16 Name of Procedure: Right leg venogram Ultrasound access popliteal vein Pre-Operative Diagnosis: Right iliofemoral popliteal DVT Post-Operative Diagnosis: Chronic right femoral popliteal DVT Estimated Blood Loss: scant Surgeon/Liquor Grinder Mill Operator: ARTURO PALOMO MD Anesthesia: local monitored anesthesi Operative Indication: Right iliofemoral DVT. Operative/Procedure Note Note: Right popliteal fossa was prepped with Betadine in the prone position. Ultrasound was used to assess the right popliteal vein.. The popliteal vein was noncompressible, and dilated. 1% lidocaine was used for local. 21-gauge needle, an 0.018 a wire was used to try to get into the popliteal vein under ultrasound guidance. There is flashback of blood, but the 018 wire had difficulty passing through. Using fluoroscopy, the wire was noted to be changed easily. Multiple wires were used. I then used a 0.018 Glidewire through the 21-gauge needle. A wire was able to get proximally about 8-10 cm however through a curved tip. I then placed the acupuncture dilator over the wire up to get only a few centimeters then. I removed the wire and the inner cannula and there was flashback of blood. At this point I injected contrast assess the anatomy. The catheter was in the popliteal vein. The popliteal vein had chronic thrombus with channels of flow into the femoral vein to the mid thigh. The main femoral vein in the itself was not visualized as there were significant thigh collaterals. This suggested chronic femoral popliteal vein occlusion. At this point the dilator and sheath removed and pressure was held for hemostasis. Conclusion: Chronic right leg DVT, with occlusive chronic occlusive components. Not amenable to thrombolysis. Recommend anticoagulation for at least 6 months.
[2016-10-23 20:30] VITALS: BP 150/88
--- NOTE | 2016-10-23 20:30 | NUR ---
CHRISTIAN NOTE; PT BACK FROM OR AT 2009. A+OX3. PALPABLE PEDAL PULSES RLE. BAND-AID BEHIND R) KNEE. C/D/I. NO DRAINAGE. NO C/O PAIN. VSS.
--- NOTE | 2016-10-23 22:30 | PN- Vascular Surgery ---
Subjective Subjective: POC S/P RIGHT LE POPLITEAL DVT THROMBOLYSIS(UNSUCCESSFUL) comfortable now denies cp, sob, no n+v Objective Vital Signs and I&Os Vital Signs Date Time Temp Pulse Resp B/P B/P Pulse O2 O2 Flow FiO2 Mean Ox Delivery Rate 10/23 2159 94 Room Air 10/23 2030 98.8 68 20 150/88 95 Nasal 2.0L Cannula 10/23 1534 98.3 62 20 152/84 96 Room Air 10/23 1044 Room Air 10/23 0948 68 160/92 10/23 0948 68 160/92 10/23 0825 98.9 63 18 162/90 95 Room Air 10/23 0247 74 160/88 10/22 2240 98.7 72 16 178/100 96 Room Air Intake & Output 10/23 1600 10/23 0800 10/23 0000 10/22 1600 10/22 0800 10/22 0000 Intake Total 522 181 Output Total 500 Balance 22 181 Intake, IV 322 181 Intake, Oral 200 Output, Urine 500 Patient 230 lb 230 lb 230 lb Weight Weight Reported by Patient Reported by Patient Measurement Method Physical Exam: cv; rrr lungs: clear abd; soft, +bs ext: no hematoma right popliteal area distal dp/pt pulses intact motor/sensory intact right le Assessment/Plan Assessment/Plan vascular stable unsuccessful attemp to place thrombollytic catherter in right le dvt plan hep gtt tonight start po anticoagulation 10/23 per medical team f/u Dr Lucero in 2-3 weeks for post op f/u will sign off but remain available for immediate consult on this admission
[2016-10-23 23:00] LABS: PTT 67 SEC (25-37)
[2016-10-24 00:24] VITALS: BP 146/80
--- NOTE | 2016-10-24 07:05 | PN- Housestaff ---
DARIUS GREENWOOD MD 10/24/16 0704: Subjective Follow-up For: Right lower extremity DVT Tele-Events Since Last Visit: NSR/SB HR 49-83 HR 40 0400 Subjective: Patient seen and examined. He is seen sitting upright in bed resting comfortably. He appears to be in no acute distress. He reports sleeping well and denies any new complaints. He does admit that his right leg does still look larger than his left and is mildly painful. Otherwise he denies any fever, chills, chest pain, shortness of breath, or any obvious bleeding. Review of Systems Constitutional: Reports: see HPI. Objective Last 24 Hrs of Vital Signs/I&O Vital Signs Date Time Temp Pulse Resp B/P B/P Pulse O2 O2 Flow FiO2 Mean Ox Delivery Rate 10/24 0024 98.2 57 18 146/80 95 10/24 0000 Room Air 10/23 2159 94 Room Air 10/23 2030 98.8 68 20 150/88 95 Nasal 2.0L Cannula 10/23 1534 98.3 62 20 152/84 96 Room Air 10/23 1044 Room Air 10/23 0948 68 160/92 10/23 0948 68 160/92 Intake & Output 10/24 1600 10/24 0800 10/24 0000 Intake Total 679.6 972 Output Total 1000 600 Balance -320.4 372 Intake, IV 429.6 572 Intake, Oral 250 400 Output, Urine 1000 600 Patient 102.058 kg Weight Weight Chair scale Measurement Method Physical Exam General Appearance: Alert, Oriented X3, Cooperative, No Acute Distress Other Physical Findings: General- well developed, pleasant middle aged man in no acute distress HEENT- NCAT, PERRL, EOMI, anicteric sclera Chest- S1, S2 w/o m/g/r Lung- CTA bilaterally Abdomen- Soft, nontender, nondistended, bowel sounds intact Neuro- Awake and alert, CN II - XII grossly intact Ext-normal pulses except as below, no cyanosis/clubbing -RLE: mild swelling, mild tenderness, decreased but palpable pulses, no deformity or rash Current Medications: Current Medications Sig/Froilan Start time Last Medication Dose Route Stop Time Status Admin Acetaminophen 650 MG Q6P PRN 10/22 2129 AC PO Acetaminophen/ 1 TAB Q6P PRN 10/22 2129 AC Hydrocodone Bitart PO Allopurinol 300 MG DAILY 10/23 1000 AC 10/23 PO 0948 Alteplase, 10 MG ONCE ONE 10/23 1645 DC Recombinant IV 10/23 1646 Sodium Chloride 100 ML Alteplase, 12.5 MG ONCE ONE 10/23 1615 CAN Recombinant IV 10/24 0444 Sodium Chloride 237.5 ML Amlodipine Besylate 5 MG DAILY 10/23 1000 AC 10/23 PO 0948 Dextrose/Sodium 1,000 ML Q20H 10/23 1045 DC 10/23 Chloride IV 10/24 0644 1135 Fentanyl Citrate 200 MCG .STK-MED ONE 10/23 1731 DC IM 10/23 1732 Heparin Sodium 25,000 UNIT Q24H 10/22 1730 AC 10/23 (Porcine) IV 1721 Sodium Chloride 500 ML Heparin Sodium 5,000 UNIT .Q1M 10/22 1730 AC 10/22 (Porcine) IV PUSH 1845 N/A 1 UNIT Metoprolol Tartrate 25 MG DAILY 10/23 1000 AC 10/23 PO 0948 Midazolam HCl 4 MG .STK-MED ONE 10/23 1732 DC IM 10/23 1733 Oxycodone/ 1 TAB Q6P PRN 10/22 2130 AC Acetaminophen PO Patient Medication 1 ED .STK-MED ONE 10/23 1412 DC Teaching ED 10/23 1413 Last 24 Hrs of Lab/Steffen Results Last 24 Hrs of Labs/Mics: Laboratory Tests 10/24/16 0613: Sodium Pending, Potassium Pending, Chloride Pending, Carbon Dioxide Pending, Anion Gap Pending, BUN Pending, Creatinine Pending, BUN/Creatinine Ratio Pending , CBC w Diff Pending, WBC Pending, RBC Pending, Hgb Pending, Hct Pending, MCV Pending, MCH Pending, RDW Pending, Plt Count Pending, MPV Pending, PUBS MCHC Pending 10/23/16 2155: APTT 67 H 10/23/16 0910: APTT 88 H Assessment/Plan Assessment: 61 year old man with relatively limited past medical history sent in for evaluation by his PCP after discovering a right lower extremity DVT on unilateral ultrasound. #Right Lower Extremity Deep Venous Thrombosis Patient reports history of mild/moderate lower extremity discomfort for the past several months. Denies smoking history, recent immobility, previous blood clots, or hormone replacement therapy, or personal history of cancer. Patient informed his PCP Dr. Mcwilliams of this considering it was persistent/worsening for which he was sent for an outpatiennt Ultrasound of the extremity. The study identified an extensive thrombus from the popliteal vein extending past the external iliac artery for which he was sent in to the ED for evalution. Patient was placed on a Heparin Drip and vascular surgery consult was placed. Patient was kept NPO in anticipation of this. CT Abdomen/Pelvis without contrast did not identify any obvious mass lesion that may obstruct any venous outflow. Patient was taken to the OR and it was determined that the the thrombus appeared to be chronic, making it him not eligible for thrombolytic therapy. He is bridged to Eliquis and heparin drip was discontinued. He is to follow up with his vascular surgeon in two to three weeks for further evaluation. He is also to see his PCP Dr. Mcwilliams for evaluation of a possible etiology of the unprovoked DVT which may include cancer screening workup such as a colonoscopy for spiral chest CT. -Telemetry -Heparin Drip -D5 1/2 NS @ 50mL/hr -Vascular Surgery consult -Outpatient evaluation of possible occult malignancy and colonoscopy Hypertension -Metoprolol 25mg PO Daily -Amlodipine 5mg PO Daily Hyperlipidemia-Not currently on medication. Gout-Allopurinol 300mg PO Daily Pain Plan- Percocet Diet-Regular Diet DVT PPx- on heparin drip Code Status- DNR/DNI Problem List: 1. Deep venous thrombosis of right popliteal vein Pain Ratin Pain Location: None Pain Goal: Remain pain free Pain Plan: See assessment Tomorrow's Labs & Rationales: None RAMONA KERN MD 10/24/16 0816: Attending MD Review Statement Attending Statement Attending MD Statement: examined this patient, discuss w/resident/PA/PESTICIDE CONTROL INSPECTOR, agreed w/resident/PA/PESTICIDE CONTROL INSPECTOR, reviewed EMR data (avail), discussed with nursing, discussed with case mgmt, amended to note Attending Assessment/Plan: Patient seen and examined. Resting comfortably and not in acute distress. Unfortunately thrombolyzes was unsuccessful yesterday. It appears that his clock is chronic. His fortunately symptom-free denied any lower extremity pain. He doesn't have any increased swelling this morning. Distal pulses remain strong and palpable. He shows no evidence of pulmonary embolism as he denies any respiratory complaints and lungs are clear bilaterally. He is not requiring oxygen supplementation. Recommendations: -Transition patient to Eliquis and then discontinue IV heparin. -Follow-up with the hematology service as an outpatient in 2 weeks. -Patient to follow-up with his primary care provider as an outpatient for age- appropriate cancer screening. This has been discussed in detail with the patient. -Patient is medically stable to be discharged home today.
[2016-10-24 08:28] LABS: ABSOLUTE BASOPHIL COUNT 0 /CUMM (0.0-0.2); ABSOLUTE EOSINOPHIL COUNT 0.3 /CUMM (0.0-0.7); ABSOLUTE GRANULOCYTE CT 4.2 /CUMM (1.4-6.5); ABSOLUTE MONOCYTE COUNT 0.6 /CUMM (0.10-0.60); BASOPHIL % 0.5 % (0.0-2.0); EOSINOPHIL % 4.2 % (0-5); GRANULOCYTE % 58.8 % (42.2-75.2); HEMATOCRIT 48.4 % (42-52); MEAN CORPUSCULAR HGB 27.9 PG (27.0-31.0); MEAN CORPUSCULAR HGB CONC 32.5 G/DL (33.0-37.0); MEAN CORPUSCULAR VOLUME 86.1 FL (80.0-94.0); MEAN PLATELET VOLUME 8.4 FL (7.4-10.4); PLATELET COUNT 214 /CUMM (130-400); RBC DISTRIBUTION WIDTH 16.3 % (11.5-14.5); RED BLOOD CELL CT 5.63 /CUMM (4.70-6.10); WHITE BLOOD CELL COUNT 7.1 /CUMM (4.8-10.8)
--- NOTE | 2016-10-24 08:30 | Patient Discharge Instructions ---
Discharge Instructions General Discharge Information Special Instructions: Follow up with your primary care provider after discharge. Consider obtaining a screening colonoscopy. Follow up with your vascular surgeon Dr. Lucreo within two to three weeks for post operative evaluation. Acute Coronary Syndrome Inclusion Criteria At DC or during hospital stay patient has or had the following: ACS DIAGNOSIS No Discharge Core Measures Meds if any: Prescribed or Continued at Discharge Meds if any: NOT Prescribed or Continued at Discharge Congestive Heart Failure Inclusion Criteria At DC or during hospital stay patient has or had the following: CHF DIAGNOSIS No Discharge Core Measures Meds if any: Prescribed or Continued at Discharge Meds if any: NOT Prescribed or Continued at Discharge Cerebrovascular accident Inclusion Criteria At DC or during hospital stay patient has or had the following: CVA/TIA Diagnosis No Discharge Core Measures Meds if any: Prescribed or Continued at Discharge Meds if any: NOT Prescribed or Continued at Discharge Venous thromboembolism Inclusion Criteria VTE Diagnosis No VTE Type NONE VTE Confirmed by (Test) NONE Discharge Core Measures - Per Current guidelines, there needs to be overlap - treatment for the first 5 days of Warfarin therapy. - If discharged on Warfarin prior to 5 days of - overlap therapy, the patient will need to be - assessed for post discharge needs including - *Post discharge parental anticoagulation - *Warfarin and/or parental anticoagulation education - *Follow up date to check INR post discharge At least 5 days overlap therapy as Inpatient No Meds if any: Prescribed or Continued at Discharge Note: Overlap Therapy is Warfarin and Anticoagulant Meds if any: NOT Prescribed or Continued at Discharge
[2016-10-24] MEDS ORDERED: AMLODIPINE BESYL5 M1 PO ×2 (08:37→10:54)
--- NOTE | 2016-10-24 08:41 | RADIOLOGY REPORT ---
EXAMINATION: XR VENOGRAM, RIGHT, ADMINISTRATIVE DICTATION CLINICAL INFORMATION: Right leg venogram. COMPARISON: None TECHNIQUE/FINDINGS: Fluoroscopic equipment was dedicated to the operating room for the performance of the right lower extremity venogram. 3 cine spot series were obtained and are archived in PACS for review. FLUOROSCOPY TIME: 301.6 seconds. IMPRESSION: Administrative dictation for right lower extremity venogram.
[2016-10-24] MEDS ORDERED: ELIQUIS5 M1 PO ×2 (08:45→10:54)
[2016-10-24 08:56] VITALS: BP 150/76
[2016-10-24 09:00] VITALS: BP 150/76
--- NOTE | 2016-10-24 09:05 | PN- Student ---
OUSMANE FLORES 10/24/16 0904: Subjective Subjective: Pt. is a laying in bed, in no apparent distress. He states that he feels disappointed that they were unable to get rid of the clot. Other than this he states he feels fine. He does not experience any pain, but he does feel tightness in his right calf. He states that he waiting to be on warfarin or Elquis. People are in contact to see which medication insurance would pay for. He asked if there was any "ancillary" medications that could help his DVT like chelation. The resident spoke to him and informed him that there are not any "ancillary" medications or procedures that she is aware that can help with his condition. She stated that chelation helps with increase metals in the body, but not dissolving the clot. He verbalized understanding and states that he will use the medication that was approved for him. Overnight events: SB, SR 49-83, 41 throughout the night, few PVC Has not had a BM since admission on 10/22/16, but states that he has not eaten much. ROS: denies shortness of breath, chest pain, palpitations, headache fevers, chills, dysuria, oliguria Objective Objective: General: VS: Temp 98.1, HR 76, RR 18, BP 150/76 PE: General: Calm, cooperative, in no apparent distress. Affect is appropriate to situation Neuro: Alert and Oriented x3 Cardiovascular: RRR, S1 and S2 normal. No mumurs, rubs, or gallops Pulm: Clear breath sounds bilaterally. No wheezes, rales, or rhonchi GI: Soft, nondistended, no masses. Pt. states mild discomfort upon deep palpation in the left lower quadrant, but states that it might be because he has not had a bowel movement yet. LE: Lower extremitis are dry and cool to touch. Right leg edema from the feet and extends to to the knee. 1+ pitting edema in the right ankle. Negative fluid balance. Labs: WNL CT: showed no lymphadenopathy or tumor. Bilateral nephrolithiasis, diverticulosis, cholelithiasis, fat containing hernia, and inguinal hernia. Assessment/Plan Assessment: Pt. is a 59 yo male with a pmhx of HTN on metoprolol, gout on allopurinol, and HL on no medications who was in his usual state of health until he experienced acute right leg weakness, achiness, erythema, edema, and hypertension. Yesterday, the patient had a CT that showed no lymphadenopathy of tumors. He was sent to undergo thrombolytic catheter, but was unable to do so because the vessels were too calcified. He was given Heparin 25,000 u. An APTT was performed and the patient was within therapeutic range. At the time of admission pt's BP is also increased, SBP ranging from 160-195 and DBP randing 78-100. We gave added amlodipine to his treatment and his SBP decreased to the 150's and DBP to the 70's. He denies any SOB, palpitations, cp, and NEGRON and is stable. The patient is stable for d/c today. 1. Unprovoked DVT * Discharge with Eliquis * Follow up 2-[address] Vallejo 2. HTN * Continue metoprolol * Add Amlodipine 5mg PO QD 3. HL * follow up outpatient with PCP 4. Gout * Continue allopurinol
--- NOTE | 2016-10-28 11:46 | Discharge Summary ---
Visit Information Visit Dates Admission Date: 10/22/16 Discharge Date: 10/24/16 Hospital Course Course Attending Physician: RAMONA KERN M.D Primary Care Physician: ABDIRAHMAN LEIVA DO Consulting Request: Consulting Specialty: Thoracic/Vascular Surgery Hospital Course: 61 year old man with past medical history of hyperlipidemia, gout, and hypertension seen for evaluation of worsening lower extremity swelling and pain. Patient reports that he had gained 'winter weight' and noticed that his lower extremities had been causing him some discomfort of the past several months with some associated swelling, with the right leg being more swollen than left. He informed his primary care provider of this whom ordered a right lower extremity doppler that identified an extensive deep venous thrombosis for which the patient was contacted and encourage to report to the ED for evaluation. He denies any history of smoking, extended immobility, hormone therpay. He also denies any recent preventative workup for cancer screening such as colonoscopy or spiral chest CT. ED Course: -Vitals: Temp 97.3-98.7, HR 72-94, RR 16-18, BP 178-195/78-100, O2 95-98% on RA -Significant labs: WBC 8.4, Hbg/Hct 15.3/46.2, Plt 228, BEP/LFTs WNL -Studies: -Interventions: Problem List: #Right Lower Extremity DVT #Hyperlipidemia #Hypertension Hospital Course: Patient was started on a heparin drip and admitted to the telemetry floor for further evaluation. Vascular surgery consult was placed and patient was kept NPO in anticipation of a possible procedure in the morning. Troponins/EKG were trended and remained negative. Patient was reproted recently started on Metoprolol by his PCP which failed to control patients elevated blood pressure inpatient for which amlodipine was added to his regimen. Patient was seen and evaluted by vascular surgeon Dr. Lucero whom wanted to attempt thrombolysis, however it was determined that the clot appeared to be chronic versus acute so the procedure was terminated. Patient was bridged to Eliquis and discharged to home with instruction to take Eliquis/Amlodipine as directed and to follow up with his PCP for outpatient preventative cancer screening as patient has no clear etiology for this unprovoked DVT. Allergies: Coded Allergies: No Known Allergies (10/22/16) Significant Procedures: SERVICE DATE: 10/23/16-1013 EXAM TYPE: CAT - CT ABD & PELVIS W/O IV CONTRAS IMPRESSION: 1. No evidence of lymphadenopathy or tumor in the abdomen or pelvis. 2. Bilateral nephrolithiasis without hydroureteronephrosis. 3. Diverticulosis of the descending and sigmoid colon without diverticulitis. 4. Cholelithiasis without cholecystitis. 5. Fat-containing umbilical hernia and inguinal hernias. SERVICE DATE: 10/23/16 EXAM TYPE: RAD - XRY-FEMUR, 2 VIEWS RIGHT IMPRESSION: Administrative dictation for right lower extremity venogram. Disposition Summary Disposition Principal Diagnosis: Right Lower extremity DVT Additional Diagnosis: Hypertension Discharge Disposition: home or self care Discharge Instructions General Discharge Information Code Status: Do Not Resucitate/Intubat Patient's Diet: Regular Diet Patient's Activity: Weight bearing as tolerated, avoid high contact sports or vigorous activity. Follow-Up Instructions/Appts: Follow up with your primary care provider after discharge. Consider obtaining a screening colonoscopy. Follow up with your vascular surgeon Dr. Lucero within two to three weeks for post operative evaluation. Take Eliquis/Amlodipine as directed. Medications at Discharge Discharge Medications: Continue taking these medications: Metoprolol Succinate (Metoprolol Succinate) 25 MG TAB 1 Tablet ORAL DAILY Qty = 30 Comments: Last Taken: 10/24/16 Time: 0900 AM Allopurinol (Allopurinol) 300 MG TABLET 1 Tablet ORAL DAILY Qty = 30 Comments: Last Taken: 10/24/16 Time: 9 AM Start taking the following new medications: Amlodipine Besylate (Amlodipine Besylate) 5 MG TABLET 5 Milligram ORAL DAILY Qty = 30 No Refills Instructions: . Comments: Last Taken: 10/24/16 Time: 9 AM Apixaban (Eliquis) 5 MG TABLET 10 Milligram ORAL TWICE DAILY Qty = 72 No Refills Instructions: TAKE 2 TABS BY MOUTH TWICE A DAY FOR ONE WEEK. THEN TAKE ONE TAB BY MOUTH TWICE A DAY THEREAFTER. Comments: Last Taken: 10/24/16 Time: 1030 AM Copies To: STACIA FINE,ARTURO PONCE; ABDIRAHMAN LEIVA DO, MD Review Statement Documenting Attending: RAMONA KERN M.D Other Findings: I have reviewed the discharge summaries.
== END 2016-10-24 11:40 | DRG 301 ==
LOC: ERH 15:42 → ERHI 17:54 → 1NO 17:54 → CANRESERV 19:59 → ENRESERV 19:59 → ERHI 21:08 → CANBEDREQ 21:17 → ENRESERV 21:21 → ENTRNSPT 22:08 → 1NO 22:23 → CMPTRNSPT 22:29 → 1NO 10-23 07:26 → ENPENDDIS 10-24 09:45 → 1NO 10-24 11:40
PROVIDERS: Internal Medicine; Internal Medicine Hematology & Oncology; Internal Medicine Interventional Cardiology; Student in an Organized Health Care Education/Training Program; ADMIT Internal Medicine
PROC: B51B1ZA Fluoroscopy of Right Lower Extremity Veins using Low Osmolar Contrast, Guidance (ICD-10-PCS; principal; 2016-10-23)
DX: I82.431 Acute embolism and thrombosis of right popliteal vein (principal); I82.421 Acute embolism and thrombosis of right iliac vein; I10 Essential (primary) hypertension; E78.5 Hyperlipidemia, unspecified; M10.9 Gout, unspecified
CPT/HCPCS: 1NSP; 36415; 73552; 74176; 82436; 93005; 93010; C1725; J0690; J1644; J2997; J7040; J7042; Q9967